=== PATIENT | female | born 1955 | race Caucasian/White ===

== ENCOUNTER → 2017-10-03 07:56 | Outpatient (CLI) | payer OTHER, SELFPAY ==
--- NOTE | 2017-10-03 | DI.MG.S_ITS ---
BILATERAL DIGITAL SCREENING MAMMOGRAM 3D/2D WITH CAD: 10/03/2017 CLINICAL: Routine screening. Comparison is made to exams dated: 10/03/2016 mammogram - [facility] and 08/16/2014 mammogram - [facility]. The tissue of both breasts is heterogeneously dense. This may lower the sensitivity of mammography. Current study was also evaluated with a Computer Aided Detection (CAD) system. No significant masses, calcifications, or other findings are seen in either breast. There has been no significant interval change. IMPRESSION: NEGATIVE There is no mammographic evidence of malignancy. A 1 year screening mammogram is recommended. This exam was interpreted at Station ID: [id number]. NOTE: For mammograms, a report in lay terms will be sent to the patient. Approximately 15% of breast malignancies will not be visualized mammographically. In the management of a palpable breast mass, a negative mammogram must not discourage biopsy of a clinically suspicious lesion. Electronically Signed By: Amador cabrera/erin:10/05/2017 11:28:55 letter sent: Normal Exam ACR BI-RADS Category 1: Negative 3341F
== END ==
PROVIDERS: Family Provider Family Medicine; PCP Family Medicine; Visit Provider Family Medicine
DX: Z12.31 Encounter for screening mammogram for malignant neoplasm of breast (principal)
CPT/HCPCS: 77063; 77067

== ENCOUNTER → 2018-05-26 15:52 | Outpatient (CLI) | payer OTHER, SELFPAY ==
--- NOTE | 2018-05-26 15:54 | DI.RAD.S_ITS ---
PROCEDURE: XR LUMBAR SPINE 2-3V INDICATIONS: R hip px TECHNIQUE: 3 views of the lumbar spine were acquired. COMPARISON: None. FINDINGS: Bones: 5 [id number] vertebrae are present. There is severe levoscoliosis. No vertebral body compression fractures. No suspicious bony lesions. There is degenerative disc disease, moderate at T12-L1, L1-L2, and mild at other levels. There is severe facet arthropathy at L3 at L4, L5 and L5 and L5-S1. Soft tissues: Overlying bowel gas pattern is normal. No suspicious soft tissue calcifications. IMPRESSION: 1. Severe levoscoliosis. 2. Degenerative disc and facet disease as described. Dictated by: Ricky Babin M.D. on 05/26/2018 at 17:28 Approved by: Ricky Babin M.D. on 05/26/2018 at 17:30
--- NOTE | 2018-05-26 15:54 | DI.RAD.S_ITS ---
PROCEDURE: XR HIP W PEL IF DONE RT 2V INDICATIONS: R hip px TECHNIQUE: AP pelvis with lateral view(s) of the right hip(s). COMPARISON: None. FINDINGS: Bones: No fractures or dislocations. Pelvic ring appears intact. No suspicious bony lesions. There is a right hip arthroplasty. The prosthetic femoral head appears seated superiorly and laterally subluxed. There is degenerative disease in the lower lumbar spine. A large left lateral osteophyte is noted. Soft tissues: The visualized bowel gas pattern is normal. No suspicious soft tissue calcifications. IMPRESSION: Right hip arthroplasty. The prosthetic femoral head appears malaligned suspicious for hip dislocation. Dictated by: Rikcy Babin M.D. on 05/26/2018 at 17:40 Approved by: Ricky Babin M.D. on 05/26/2018 at 17:43
== END ==
PROVIDERS: PCP Family Medicine; Visit Provider Family Medicine
DX: M25.551 Pain in right hip (principal); M41.86 Other forms of scoliosis, lumbar region; M51.36 Other intervertebral disc degeneration, lumbar region; Z96.641 Presence of right artificial hip joint
CPT/HCPCS: 72100; 73502

== ENCOUNTER → 2018-10-05 10:35 | Outpatient (CLI) | payer OTHER, SELFPAY ==
--- NOTE | 2018-10-05 | DI.MG.S_ITS ---
BILATERAL DIGITAL SCREENING MAMMOGRAM 3D/2D WITH CAD: 10/05/2018 CLINICAL: Routine screening. Comparison is made to exams dated: 10/03/2017 mammogram, 10/03/2016 mammogram - [facility], and 08/16/2014 mammogram - [facility]. The tissue of both breasts is heterogeneously dense. This may lower the sensitivity of mammography. Current study was also evaluated with a Computer Aided Detection (CAD) system. There is 0.7 cm oval equal density asymmetry in the right breast anterior depth inferior region seen on the mediolateral oblique view only. This is more prominent and increased in size. No other significant masses, calcifications, or other findings are seen in either breast. IMPRESSION: INCOMPLETE: NEEDS ADDITIONAL IMAGING EVALUATION The 0.7 cm oval equal density asymmetry in the right breast is indeterminate. Additional views with possible ultrasound are recommended. This exam was interpreted at Station ID: [id number]. NOTE: For mammograms, a report in lay terms will be sent to the patient. Approximately 15% of breast malignancies will not be visualized mammographically. In the management of a palpable breast mass, a negative mammogram must not discourage biopsy of a clinically suspicious lesion. Electronically Signed By: Cheo Jo M.D. aty/:10/05/2018 12:03:46 letter sent: Additional Imaging Needed ACR BI-RADS Category 0: Incomplete 3340F
== END ==
PROVIDERS: PCP Family Medicine; Visit Provider Family Medicine
DX: Z12.31 Encounter for screening mammogram for malignant neoplasm of breast (principal)
CPT/HCPCS: 77063; 77067

== ENCOUNTER → 2018-10-25 08:58 | Outpatient (CLI) | payer OTHER, SELFPAY ==
--- NOTE | 2018-10-25 09:00 | DI.US.S_ITS ---
LIMITED ULTRASOUND OF RIGHT BREAST: 10/25/2018 CLINICAL: Patient returns today to evaluate a density in the right breast. Comparison is made to exams dated: 10/25/2018 mammogram, 10/05/2018 mammogram, 10/03/2017 mammogram, 10/03/2016 mammogram - [facility], and 08/16/2014 mammogram - [facility]. Color flow and real-time ultrasound of the right breast 5-7 o'clock region were performed on the areas of interest. There is a benign 0.5 cm x 0.4 cm x 0.6 cm oval cyst in the right breast at 6 o'clock anterior depth. This oval cyst is anechoic with a well-defined boundary and posterior acoustic shadowing. This correlates with mammography findings. Color flow imaging demonstrates that there is no vascularity present. IMPRESSION: BENIGN There is no sonographic evidence of malignancy. The 0.5 cm x 0.4 cm x 0.6 cm oval cyst in the right breast is consistent with a simple cyst and is benign. A 1 year screening mammogram is recommended. This exam was interpreted at Station ID: [id number]. Electronically Signed By: Amador cabrera/erin:10/25/2018 11:07:19 letter sent: Normal Exam Ultrasound BI-RADS: 2 Benign
--- NOTE | 2018-10-25 09:00 | DI.MG.S_ITS ---
UNILATERAL RIGHT DIGITAL DIAGNOSTIC MAMMOGRAM 3D/2D WITH ADDITIONAL VIEWS: 10/25/2018 CLINICAL: Additional evaluation requested from prior study. Comparison is made to exams dated: 10/05/2018 mammogram, 10/03/2017 mammogram, and 10/03/2016 mammogram - [facility]. The tissue of right breast is heterogeneously dense. This may lower the sensitivity of mammography. There is 0.7 cm oval equal density asymmetry in the right breast anterior depth inferior region seen on the mediolateral oblique view only. This is seen in additional views. This is less prominent. No other significant masses or calcifications are seen in the breast. IMPRESSION: INCOMPLETE: NEEDS ADDITIONAL IMAGING EVALUATION The 0.7 cm oval equal density asymmetry in the right breast is indeterminate. An ultrasound is recommended which is scheduled to immediately follow this examination. This exam was interpreted at Station ID: [id number]. NOTE: For mammograms, a report in lay terms will be sent to the patient. Approximately 15% of breast malignancies will not be visualized mammographically. In the management of a palpable breast mass, a negative mammogram must not discourage biopsy of a clinically suspicious lesion. Electronically Signed By: Cheo Jo M.D. aty/:10/25/2018 11:00:46 ACR BI-RADS Category 0: Incomplete 3340F
== END ==
PROVIDERS: PCP Family Medicine; Visit Provider Family Medicine
DX: R92.8 Other abnormal and inconclusive findings on diagnostic imaging of breast (principal); N60.01 Solitary cyst of right breast
CPT/HCPCS: 76642; 77065; G0279

== ENCOUNTER → 2019-10-31 08:37 | Outpatient (CLI) | payer OTHER, SELFPAY ==
--- NOTE | 2019-10-31 | DI.MG.S_ITS ---
BILATERAL DIGITAL SCREENING MAMMOGRAM 3D/2D WITH CAD: 10/31/2019 CLINICAL: Routine screening. Comparison is made to exams dated: 10/05/2018 mammogram, 10/03/2017 mammogram, and 10/03/2016 mammogram - [facility]. The tissue of both breasts is heterogeneously dense. This may lower the sensitivity of mammography. Current study was also evaluated with a Computer Aided Detection (CAD) system. No significant masses, calcifications, or other findings are seen in either breast. There has been no significant interval change. IMPRESSION: NEGATIVE There is no mammographic evidence of malignancy. A 1 year screening mammogram is recommended. This exam was interpreted at Station ID: [id number]. NOTE: For mammograms, a report in lay terms will be sent to the patient. Approximately 15% of breast malignancies will not be visualized mammographically. In the management of a palpable breast mass, a negative mammogram must not discourage biopsy of a clinically suspicious lesion. Electronically Signed By: Cheo gonzalez/erin:10/31/2019 09:11:27 letter sent: Normal Exam ACR BI-RADS Category 1: Negative 3341F
== END ==
PROVIDERS: PCP Student in an Organized Health Care Education/Training Program; Referring Provider Student in an Organized Health Care Education/Training Program; Visit Provider Student in an Organized Health Care Education/Training Program
DX: Z12.31 Encounter for screening mammogram for malignant neoplasm of breast (principal)
CPT/HCPCS: 77063; 77067

== ENCOUNTER → 2020-12-14 10:08 | Outpatient (CLI) | payer OTHER, SELFPAY ==
--- NOTE | 2020-12-14 | DI.MG.S_ITS ---
BILATERAL DIGITAL SCREENING MAMMOGRAM 3D/2D WITH CAD: 12/14/2020 CLINICAL: Routine screening. Comparison is made to exams dated: 10/31/2019 mammogram, 10/05/2018 mammogram, 10/03/2017 mammogram, 10/03/2016 mammogram - [facility], and 08/16/2014 mammogram - [facility]. The tissue of both breasts is heterogeneously dense. This may lower the sensitivity of mammography. Current study was also evaluated with a Computer Aided Detection (CAD) system. No significant masses, calcifications, or other findings are seen in either breast. There has been no significant interval change. IMPRESSION: NEGATIVE There is no mammographic evidence of malignancy. A 1 year screening mammogram is recommended. This exam was interpreted at Station ID: [id number]. NOTE: For mammograms, a report in lay terms will be sent to the patient. Approximately 15% of breast malignancies will not be visualized mammographically. In the management of a palpable breast mass, a negative mammogram must not discourage biopsy of a clinically suspicious lesion. Electronically Signed By: Jules ellis/erin:12/14/2020 15:09:15 letter sent: Normal Exam ACR BI-RADS Category 1: Negative 3341F
== END ==
PROVIDERS: PCP Student in an Organized Health Care Education/Training Program; Referring Provider Student in an Organized Health Care Education/Training Program; Visit Provider Student in an Organized Health Care Education/Training Program
DX: Z12.31 Encounter for screening mammogram for malignant neoplasm of breast (principal)
CPT/HCPCS: 77063; 77067

== ENCOUNTER → 2021-12-11 12:00 | Outpatient (CLI) | payer OTHER, SELFPAY ==
[2021-12-12 10:35] LABS: Fecal Immunochemical Test Negative (Negative)
== END ==
PROVIDERS: PCP Nurse Practitioner; Referring Provider Nurse Practitioner; Visit Provider Nurse Practitioner
DX: Z12.11 Encounter for screening for malignant neoplasm of colon (principal)
CPT/HCPCS: 82274

== ENCOUNTER → 2021-12-17 07:47 | Outpatient (CLI) | payer OTHER, SELFPAY ==
--- NOTE | 2021-12-17 07:49 | DI.MG.S_ITS ---
BILATERAL DIGITAL SCREENING MAMMOGRAM 3D/2D WITH CAD: 12/17/2021 CLINICAL: Routine screening. Family history of breast cancer. Comparison is made to exams dated: 12/14/2020 mammogram, 10/31/2019 mammogram, 10/05/2018 mammogram, and 10/03/2017 mammogram - [facility]. The tissue of both breasts is heterogeneously dense. This may lower the sensitivity of mammography. Current study was also evaluated with a Computer Aided Detection (CAD) system. No significant masses, calcifications, or other findings are seen in either breast. There has been no significant interval change. IMPRESSION: NEGATIVE There is no mammographic evidence of malignancy. A 1 year screening mammogram is recommended. Based on the Tyrer Cuzick model (a risk assessment model) the patient's lifetime risk is 6.4% and her 10 year risk is 3.4%. According to the ACR, ACS, and NCCN guidelines, an annual breast MRI exam along with mammogram is recommended if the patient's lifetime risk is 20% or greater. This exam was interpreted at Station ID: [id number]. NOTE: For mammograms, a report in lay terms will be sent to the patient. Approximately 15% of breast malignancies will not be visualized mammographically. In the management of a palpable breast mass, a negative mammogram must not discourage biopsy of a clinically suspicious lesion. Electronically Signed By: Jules ellis/erin:12/17/2021 10:01:07 letter sent: Normal Exam ACR BI-RADS Category 1: Negative 3341F
== END ==
PROVIDERS: PCP Nurse Practitioner; Referring Provider Nurse Practitioner; Visit Provider Nurse Practitioner
DX: Z12.31 Encounter for screening mammogram for malignant neoplasm of breast (principal); Z80.3 Family history of malignant neoplasm of breast
CPT/HCPCS: 77063; 77067

== ENCOUNTER → 2021-12-30 08:16 | Outpatient (CLI) | payer OTHER, SELFPAY ==
[2021-12-30 09:17] LABS: Cholesterol 190 mg/dL (140-199); HDL Cholesterol 69 mg/dL (40-60); LDL Cholesterol Calculated 108 mg/dL (<100); Triglycerides 65 mg/dL (35-150)
== END ==
PROVIDERS: PCP Nurse Practitioner; Referring Provider Nurse Practitioner; Visit Provider Nurse Practitioner
DX: M85.80 Other specified disorders of bone density and structure, unspecified site (principal); F41.9 Anxiety disorder, unspecified; Z13.1 Encounter for screening for diabetes mellitus; Z13.6 Encounter for screening for cardiovascular disorders
CPT/HCPCS: 36415; 80061

== ENCOUNTER → 2022-01-22 09:51 | Outpatient (CLI) | payer OTHER, SELFPAY | PROVIDERS: PCP Nurse Practitioner; Referring Provider Nurse Practitioner; Visit Provider Nurse Practitioner | DX: M81.0 Age-related osteoporosis without current pathological fracture (principal); M85.89 Other specified disorders of bone density and structure, multiple sites | CPT/HCPCS: 77080 ==

== ENCOUNTER → 2022-03-31 09:47 | Outpatient (CLI) | payer OTHER, SELFPAY | PROVIDERS: PCP Nurse Practitioner; Referring Provider Podiatrist; Visit Provider Podiatrist | DX: Z01.818 Encounter for other preprocedural examination (principal) | CPT/HCPCS: 93005 ==

== ENCOUNTER → 2022-04-23 11:58 | Outpatient (CLI) | payer OTHER, SELFPAY ==
[2022-04-23 12:56] LABS: COVID19 -Nasal RAPID Negative (Negative)
== END ==
PROVIDERS: PCP Nurse Practitioner; Referring Provider Podiatrist; Visit Provider Podiatrist
DX: Z20.822 Contact with and (suspected) exposure to COVID-19 (principal)
CPT/HCPCS: 87635; C9803

== ENCOUNTER 2022-04-25 08:01 | Day surgery (SDC) | payer OTHER, SELFPAY ==
[2022-04-24 09:48] VITALS: BMI 22.1
[2022-04-25] VITALS (11 sets, daily range): BP systolic 118–139; BP diastolic 72–83; PULSE 73–84; RESP 11–24; TEMP 36–36.4; O2SAT 96–100; BMI 21.2
[2022-04-25] MEDS: LACTATED RINGERS 1,000 ML 42 ML IV ×2 (08:35→11:42)
--- NOTE | 2022-04-25 08:55 | P.OP_ITS ---
Operative Date/Time/Diagnoses Date of procedure: 04/25/22 Time of procedure: 08:55 Pre-op diagnosis: Left first metatarsophalangeal arthrodesis, hammertoes two and four, with pain. Post-op diagnosis: same Procedure & Clinicians Procedure: 1. Left first metatarsophalangeal joint arthrodesis 2. Left second metatarsal osteotomy with proximal interphalangeal joint arthrodesis 3. Left fourth proximal interphalangeal toe joint arthrodesis with metatarsophalangeal capsulotomy. Same procedure as scheduled: Yes Indications: 66-year-old female with concern of painful arthritic great toe as well as painful hammertoes to the 2nd and 4th on the left foot. Conservative measures have failed to alleviate her pain and she wished to have surgical intervention at this time. We spoke with the risks, potential complications, alternatives, and expected outcomes of the procedures. Consent was signed, there were no contraindications to the procedures at this time. Surgeon: Jeanne Nixon Click Yes if Unassisted: Yes Anesthesia Type: General Operative Notes Closure Type: primary Specimen(s): none sent Prosthetic devices, grafts, tissues, transplants, or devices: Baldwin great toe fusion plate, 4.0 cannulated screw, 2.7 x4 screws, 2.0 cannulated screw. 0.054 and 0.045 k-wires. Estimated Blood Loss (mL): 30 Blood products transfused: none Tourniquet time (min): 120 Procedure in detail: The patient was brought to the operating room and placed on the operating table in the supine position. A tourniquet was placed about the patient's left thigh. After induction of general anesthesia the foot was prepped and local anesthesia using the recorded injectables was obtained to the first, second, and fourth rays. The foot and ankle were prepped and draped in the usual aseptic manner. The tourniquet was inflated. Incision was made over the dorsal aspect of the left 1st metatarsophalangeal joint. The incision was deepened through subcutaneous tissues being careful to identify and retract all vital neurovascular structures. All bleeders were cauterized and ligated necessary. A significant amount of degenerative exostoses were noted to the dorsal medial, central, and lateral 1st metatarsophalangeal joint. A saw was used to resect the enlargements and spurring as well as ronguer used to reduce these enlargements and spurring at the metatarsal head as well as base of proximal phalanx. The joint showed about significant remodeling and flattening of the first metatarsal head and more conical shape with remodeling of the phalangeal base. The saw was used to make angular cuts to either side of the joint to place the joint in better alignment, however the interphalangeal joint was fairly tight and I was limited in how much I could gain in sagittal plane with the tightness and angle of the interphalangeal joint. The saw was used to resect the cartilage from the 1st metatarsal head and the same procedure was performed to the proximal phalanx base. Subchondral drilling was performed to either side with a small drill and round seble. The area was irrigated with copious amount of normal sterile saline. Temporary fixation across the joint was placed with a guidewire and this was checked under C-arm to be in appropriate alignment. A plate was chosen and any further reduction of prominences dorsally was performed with a rongeur. One edge of it was slightly bent to allow for better contour. Using the aid of fl uoroscopy, the guide wire was used as cannulation for the drill for a lag screw from the distal medial to proximal lateral 1st metatarsal phalangeal joint. Confirmed appropriate in all 3 planes, a partially threaded screw was placed and the guidewire removed. Good strength and reduction of the former joint. Plate was placed and with the aid of fluoroscopy a series of locking screws and a nonlocking screw were placed across the plate and steadied the joint well. I was not able to use one of the holes in the plate due to presence of underlying lag screw, but good support and compression was noted on exam and under fluoroscopy. This was checked on C-arm. The area is irrigated with copious amounts normal sterile saline. Next, incision is made over the 2nd metatarsophalangeal joint extending to the distal interphalangeal joint. The incision was deepened through subcutaneous tissues being careful to identify and retract all vital neural and vascular structures. All bleeders were cauterized and ligated as necessary. The extensor was transected over the proximal and distal interphalangeal joints and reflected distally and proximally showing the underlying contracture of the cor responding joints. A saw was used to resect the head and the base of the proximal interphalangeal joint. This was attempted at the distal interphalangeal joint however this was just too close to the nail and the joint was linear as well as fairly immobile so the decision was made not to perform the resection here. Dissection was carried down to the 2nd metatarsophalangeal joint where a capsulotomy was performed. Once the contracture was a little further reduced with the soft tissue a saw was used to create an osteotomy on the dorsal lip of the 2nd metatarsal head going proximally. The head of the 2nd metatarsal is moved slightly proximally and stabilized with a guidewire dorsal to plantar. This was verified under C-arm to be in appropriate alignment. The tourniquet was deflated and prompt hyperemic response was seen to the foot. Following standard technique, a 2.0 cannulated screw was placed across this osteotomy and showed to be in stable condition. Remaining overlying lip of bone from the metatarsal head/shaft was resected gently using a rongeur and smoothed. The guidewire was removed. Upon loading the foot, it appeared that the extensor was still going to be a little bit tight so a Z-type lengthening was performed to the 2nd extensor tendon at the level of the proximal phalanx. The area was irrigated with copious amounts of normal sterile saline. A 0.054 K- wire was placed in the base of the proximal phalanx and driven out toward the tip of the 2nd toe. This was then retrograded into the proximal phalanx and under C-arm verified to be in good alignment. The proximal interphalangeal arthrodesis had closed down. Excess K-wire was removed and it was carefully bent and capped. The extensor tendon was repaired using 4-0 Vicryl. Next an incision was made over the 4th metatarsal phalangeal joint extending to the distal interphalangeal joint. The incision was deepened through subcutaneous tissues being careful to identify and retract all vital neural and vascular structures. All bleeders were cauterized and ligated as necessary. The extensor was transected over the proximal and distal interphalangeal joints and reflected distally and proximally showing the underlying contracture of the corresponding joints. A saw was used to resect the head and the base of the proximal interphalangeal joint. This was attempted at the distal interphalangeal joint however this was also too close to the nail and the joint was linear as well as fairly immobile so the decision was made not to perform the resection here. Dissection was carried down to the fourth metatarsophalangeal joint where a capsulotomy was performed. A 0.054 K-wire was placed in the base of the proximal phalanx and driven out toward the tip of the fourth toe. This was then retrograded into the proximal phalanx and under C-arm verified to be in good alignment. The proximal interphalangeal arthrodesis had closed down. Excess K-wire was removed and it was carefully bent and capped. Final irrigation of the areas was performed. Subcutaneous closure was performed using Vicryl and nylon was used to close the skin. A sterile lightly compressive dressing was placed on the foot and she was placed in her postoperative boot. She was transferred to the PACU with vital signs stable and vascular status intact. Post-operative Condition: stable Disposition: PACU Plan for aftercare: Following a period of postoperative monitoring, the patient will be discharged t o home on written and oral postoperative instructions including keeping the dressing dry and intact, no weight or ambulation on the surgical foot, icing and elevating the foot when seated home. DVT prevention techniques have been reviewed. For the 1st postoperative visit the dressing will be changed and close to the 4th postoperative week we will likely perform first set of x-rays.
--- NOTE | 2022-04-25 08:55 | PM.PREOP ---
Pre-operative Note COVID-19 COVID-19 status: Negative Result date/Date tested (Pos, Neg/Pending): 04/23/22 Interval Note History & Physical reviewed/Exam performed by Physician: Yes Changes to H&P: No
[2022-04-25] MEDS: CEFAZOLIN 2 GM/100 ML PREMIX 100 ML IV ×2 (09:04→12:44)
[2022-04-25] MEDS: BUPIVACAINE 0.5% (PF) VIAL 30 ML INJ (09:41)
--- NOTE | 2022-04-25 09:47 | SUR.OPER ---
Supine on padded OR bed, head on pillow, arms secured on padded arm boards at <90 degrees abduction, legs uncrossed, safety belt at waist , tape over blanket over lower right leg, left leg draped free with gel bump under left thigh.
[2022-04-25] MEDS: BACITRACIN OINT 0.9 GM PCKT 1 APPLIC TOP (13:17)
== END 2022-04-25 14:42 | disposition home or self-care (01) ==
PROVIDERS: PCP Nurse Practitioner; Referring Provider Podiatrist; Visit Provider Podiatrist
PROC: (CPT 28750; principal; 2022-04-25 09:15)
DX: M19.072 Primary osteoarthritis, left ankle and foot (principal); M20.42 Other hammer toe(s) (acquired), left foot; M20.12 Hallux valgus (acquired), left foot
CPT/HCPCS: 28750; 28285 ×2; 28308; C1713; J0690; J1100; J2405; J2704; J3010

== ENCOUNTER → 2022-06-25 08:28 | Outpatient (CLI) | payer OTHER, SELFPAY ==
[2022-06-25 09:47] LABS: Alanine Aminotransferase 20 IU/L (<35); Albumin 4.2 g/dL (3.5-5.0); Albumin Globulin Ratio 1.5 (1.0-2.8); Alkaline Phosphatase 111 U/L (38-126); Aspartate Aminotransferase 24 IU/L (14-36); BUN Creatinine Ratio 17.9 (6-22); Bilirubin Total 0.4 mg/dL (0.2-1.3); Blood Urea Nitrogen 12 mg/dL (7-17); Calcium 9.2 mg/dL (8.4-10.2); Carbon Dioxide 29 mmol/L (22-32); Chloride 103 mmol/L (98-107); Estimated Glomerular Filt Rate > 60 mL/min (>60); Globulin 2.8 g/dL (1.7-4.1); Glucose 95 mg/dL (80-110); HEMOLYSIS < 15 (0-50); Potassium 4.2 mmol/L (3.4-5.1); Sodium 138 mmol/L (137-145)
[2022-06-25 10:12] LABS: Free T3, Triiodothyronine Free 3.51 pg/mL (2.77-5.27); Free T4, Direct Thyroxine 1.09 ng/dL (0.78-2.19)
[2022-06-25 10:25] LABS: Thyroid Stimulating Hormone 1.63 uIU/mL (0.47-4.68)
[2022-06-26 16:29] LABS: Hep C Virus Ab w/Reflex Quant NEGATIVE s/c (NEGATIVE)
== END ==
PROVIDERS: PCP Nurse Practitioner; Referring Provider Nurse Practitioner; Visit Provider Nurse Practitioner
DX: F41.9 Anxiety disorder, unspecified (principal); Z11.59 Encounter for screening for other viral diseases; M85.80 Other specified disorders of bone density and structure, unspecified site; Z13.1 Encounter for screening for diabetes mellitus; Z13.6 Encounter for screening for cardiovascular disorders
CPT/HCPCS: 36415; 80053; 84439; 84443; 84481; 86803

== ENCOUNTER → 2022-12-19 08:43 | Outpatient (CLI) | payer OTHER, SELFPAY ==
--- NOTE | 2022-12-19 | DI.MG.S_ITS ---
BILATERAL DIGITAL SCREENING MAMMOGRAM 3D/2D WITH CAD: 12/19/2022 CLINICAL: Routine screening. Family history of breast cancer. Comparison is made to exams dated: 12/17/2021 mammogram, 12/14/2020 mammogram, and 10/31/2019 mammogram - [facility]. Both breasts are heterogeneously dense, which may obscure small masses (category c / 51-75% glandular tissue). Current study was also evaluated with a Computer Aided Detection (CAD) system. No significant masses, calcifications, or other findings are seen in either breast. There has been no significant interval change. IMPRESSION: NEGATIVE There is no mammographic evidence of malignancy. A 1 year screening mammogram is recommended. Based on the Tyrer Cuzick model (a risk assessment model) the patient's lifetime risk is 6.1% and her 10 year risk is 3.4%. According to the ACR, ACS, and NCCN guidelines, an annual breast MRI exam along with mammogram is recommended if the patient's lifetime risk is 20% or greater. This exam was interpreted at Station ID: [id number]. NOTE: For mammograms, a report in lay terms will be sent to the patient. Approximately 15% of breast malignancies will not be visualized mammographically. In the management of a palpable breast mass, a negative mammogram must not discourage biopsy of a clinically suspicious lesion. Electronically Signed By: Azra wilhelm/erin:12/19/2022 17:37:27 letter sent: Normal Exam ACR BI-RADS Category 1: Negative 3341F
== END ==
PROVIDERS: PCP Nurse Practitioner; Referring Provider Nurse Practitioner; Visit Provider Nurse Practitioner
DX: Z12.31 Encounter for screening mammogram for malignant neoplasm of breast (principal); Z80.3 Family history of malignant neoplasm of breast
CPT/HCPCS: 77063; 77067

== ENCOUNTER → 2023-01-14 10:14 | Outpatient (CLI) | payer OTHER, SELFPAY ==
--- NOTE | 2023-01-14 10:15 | DI.RAD.S_ITS ---
Bone Density Report Name: SAUNDRA HER Age: 67 Sex: Female Ethnicity: White Date of : 1955 Indication: postmenopausal osteoporosis; monitoring treatment; Referring Provider: MARIA ELENA BRADEN Study: Bone densitometry was performed. Exam Date: January 14, 2023 Accession number: [id number] Bone Density: Region BMD T-score Z-score Classification AP Spine(L1-L4) 0.857 -1.7 0.3 Osteopenia Femoral Neck (Left) 0.618 -2.1 -0.4 Osteopenia Total Hip (Left) 0.726 -1.8 -0.4 Osteopenia Total Forearm (Left) 0.431 -2.7 -0.9 Osteoporosis 1/3 Forearm (Left) 0.505 -3.2 -1.2 Osteoporosis UD Forearm (Left) 0.314 -2.2 -0.8 Osteopenia World Health Organization criteria for BMD impression classify patients as: Normal (T-score at or above -1.0), Osteopenia (T-score between -1.0 and -2.5), or Osteoporosis (T-score at or below -2.5). 10-year Fracture Risk: FRAX not reported because: Treated for osteoporosis Previous Exams: -- Region Exam Age BMD T-score BMD Change BMD Change Date g/cm2 vs Baseline vs Previous -- AP Spine (L1-L4) 01/14/2023 67 0.857 -1.7 -0.074 (-7.9%)# -0.074 (-7.9%)# 01/22/2022 66 0.930 -1.1 Total Hip(Left) 01/14/2023 67 0.726 -1.8 -0.003 (-0.4%)# -0.003 (-0.4%)# 01/22/2022 66 0.728 -1.8 1/3 Forearm(Left) 01/14/2023 67 0.505 -3.2 -0.002 (-0.4%) -0.002 (-0.4%) 01/22/2022 66 0.507 -3.1 -- *Denotes significance at 95% confidence level, LSC for AP Spine = 0.022 g/cm2, LSC for Total Hip = 0.027 g/cm2, LSC for 1/3 Forearm = 0.023 g/cm2 # Denotes dissimilar scan types or analysis methods Impression: The patient has low bone mass, based on the Left Femoral Neck T-score. No significant bone loss was observed. Discussion: PATIENT UNDER TREATMENT WITH NO SIGNIFICANT BMD LOSS SINCE LAST EXAM. In an untreated patient, BMD typically declines with age. A lack of decline or gain is usually a sign that treatment is efficacious and fracture risk is reduced. It is important to ask patients whether they are taking their medications and to encourage continued and appropriate compliance with their osteoporosis therapies to reduce fracture risk. It is also important to review their risk factors and encourage appropriate calcium and vitamin D intakes, exercise, fall prevention and other lifestyle measures. Follow-Up: Consider a repeat BMD and Vertebral Fracture Assessment (VFA) exam in 2 years or sooner if medically necessary, to reassess this patient's status. Reported by: CORTEZ ELLISON M.D. on 01/14/2023 10:43:00 AM.
== END ==
PROVIDERS: PCP Nurse Practitioner; Referring Provider Nurse Practitioner; Visit Provider Nurse Practitioner
DX: M81.0 Age-related osteoporosis without current pathological fracture (principal)
CPT/HCPCS: 77080; 77081

== ENCOUNTER → 2023-03-26 08:19 | Outpatient (CLI) | payer OTHER, SELFPAY ==
[2023-03-26 09:04] LABS: Add Manual Diff / Slide Review NO; Basophils Absolute Auto 100 /uL (0-100); Basophils Percent Auto 2.6 % (0-2); Eosinophils Absolute Auto 200 /uL (0-450); Hematocrit 40.2 % (36-46); Hemoglobin 13.8 g/dL (12.0-16.0); Lymphocytes Absolute Auto 1700 /uL (1100-4500); Lymphocytes Percent Auto 30.4 % (25-40); Mean Corpuscular HGB Conc 34.3 % (30-36); Mean Corpuscular Hemoglobin 32.8 PG (26-34); Mean Corpuscular Volume 95.7 fL (80-100); Monocytes Absolute Auto 500 /uL (0-900); Monocytes Percent Auto 9.5 % (3-14); Neutrophils Absolute Auto 2900 /uL (1500-7000); Neutrophils Percent Auto 53.5 % (50-75); Platelet Count 258 X10^3/uL (150-400); Red Cell Distribution Width 13.1 % (11.6-14.8); White Blood Cell Count 5.5 X10^3/uL (4.5-11.0)
[2023-03-26 09:51] LABS: Alanine Aminotransferase 21 IU/L (<35); Albumin 4.4 g/dL (3.5-5.0); Albumin Globulin Ratio 1.3 (1.0-2.8); Alkaline Phosphatase 77 U/L (38-126); Aspartate Aminotransferase 30 IU/L (14-36); BUN Creatinine Ratio 17.6 (6-22); Bilirubin Total 0.6 mg/dL (0.2-1.3); Blood Urea Nitrogen 12 mg/dL (7-17); Calcium 9.9 mg/dL (8.4-10.2); Carbon Dioxide 27 mmol/L (22-32); Chloride 101 mmol/L (98-107); Cholesterol 224 mg/dL (140-199); Estimated Glomerular Filt Rate > 60 mL/min (>60); Globulin 3.5 g/dL (1.7-4.1); Glucose 96 mg/dL (80-110); HDL Cholesterol 87 mg/dL (40-60); HEMOLYSIS < 15 (0-50); LDL Cholesterol Calculated 124 mg/dL (<100); Potassium 4.2 mmol/L (3.4-5.1); Sodium 137 mmol/L (137-145); Total Protein 7.9 g/dL (6.3-8.2); Triglycerides 65 mg/dL (35-150)
[2023-03-26 10:08] LABS: Free T3, Triiodothyronine Free 3.37 pg/mL (2.77-5.27); Free T4, Direct Thyroxine 1.15 ng/dL (0.78-2.19)
[2023-03-26 10:22] LABS: Thyroid Stimulating Hormone 1.76 uIU/mL (0.47-4.68)
[2023-03-30 12:08] LABS: Fecal Immunochemical Test Negative (Negative)
== END ==
PROVIDERS: PCP Nurse Practitioner; Referring Provider Nurse Practitioner; Visit Provider Nurse Practitioner
DX: Z86.2 Personal history of diseases of the blood and blood-forming organs and certain disorders involving the immune mechanism (principal); E78.5 Hyperlipidemia, unspecified; F41.9 Anxiety disorder, unspecified; M81.0 Age-related osteoporosis without current pathological fracture; Z79.899 Other long term (current) drug therapy; Z12.11 Encounter for screening for malignant neoplasm of colon
CPT/HCPCS: 36415; 80053; 80061; 82274; 84439; 84443; 84481; 85025

== ENCOUNTER → 2023-07-07 09:11 | Outpatient (CLI) | payer OTHER, SELFPAY ==
[2023-07-07 10:35] LABS: Alanine Aminotransferase 26 IU/L (<35); Albumin Globulin Ratio 1.3 (1.0-2.8); Alkaline Phosphatase 103 U/L (38-126); Aspartate Aminotransferase 28 IU/L (14-36); BUN Creatinine Ratio 20.6 (6-22); Bilirubin Total 0.4 mg/dL (0.2-1.3); Blood Urea Nitrogen 13 mg/dL (7-17); Calcium 9.4 mg/dL (8.4-10.2); Carbon Dioxide 26 mmol/L (22-32); Chloride 104 mmol/L (98-107); Cholesterol 160 mg/dL (140-199); Estimated Glomerular Filt Rate > 60 mL/min (>60); Glucose 91 mg/dL (80-110); HDL Cholesterol 54 mg/dL (40-60); HEMOLYSIS < 15 (0-50); LDL Cholesterol Calculated 95 mg/dL (<100); Potassium 4.4 mmol/L (3.4-5.1); Sodium 138 mmol/L (137-145); Triglycerides 55 mg/dL (35-150)
== END ==
PROVIDERS: PCP Nurse Practitioner; Referring Provider Nurse Practitioner; Visit Provider Nurse Practitioner
DX: E78.5 Hyperlipidemia, unspecified (principal); M81.0 Age-related osteoporosis without current pathological fracture
CPT/HCPCS: 36415; 80053; 80061

== ENCOUNTER → 2023-12-21 07:42 | Outpatient (CLI) | payer OTHER, SELFPAY ==
--- NOTE | 2023-12-21 07:43 | DI.MG.S_ITS ---
BILATERAL DIGITAL SCREENING MAMMOGRAM 3D/2D WITH CAD: 12/21/2023 CLINICAL: Routine screening. Family history of breast cancer. Comparison is made to exams dated: 12/19/2022 mammogram, 12/17/2021 mammogram, 10/31/2019 mammogram, and 12/14/2020 mammogram - [facility]. Both breasts are heterogeneously dense, which may obscure small masses (category c / 51-75% glandular tissue). Current study was also evaluated with a Computer Aided Detection (CAD) system. No significant masses, calcifications, or other findings are seen in either breast. There has been no significant interval change. IMPRESSION: NEGATIVE There is no mammographic evidence of malignancy. A 1 year screening mammogram is recommended. Based on the Tyrer Cuzick model (a risk assessment model) the patient's lifetime risk is 7.3% and her 10 year risk is 4.3%. According to the ACR, ACS, and NCCN guidelines, an annual breast MRI exam along with mammogram is recommended if the patient's lifetime risk is 20% or greater. This exam was interpreted at Station ID: [id number]. NOTE: For mammograms, a report in lay terms will be sent to the patient. Approximately 15% of breast malignancies will not be visualized mammographically. In the management of a palpable breast mass, a negative mammogram must not discourage biopsy of a clinically suspicious lesion. Electronically Signed By: Addison garcia/erin:12/21/2023 13:33:19 letter sent: Normal Exam ACR BI-RADS Category 1: Negative 3341F
== END ==
LOC: MAMMO 07:43
PROVIDERS: PCP Nurse Practitioner; Referring Provider Nurse Practitioner; Visit Provider Nurse Practitioner
DX: Z12.31 Encounter for screening mammogram for malignant neoplasm of breast (principal); Z80.3 Family history of malignant neoplasm of breast; R92.333 Mammographic heterogeneous density, bilateral breasts
CPT/HCPCS: 77063; 77067

== ENCOUNTER → 2023-12-23 08:04 | Outpatient (CLI) | payer OTHER, SELFPAY ==
[2023-12-23 09:50] LABS: Alanine Aminotransferase 20 IU/L (<35); Albumin 4.2 g/dL (3.5-5.0); Albumin Globulin Ratio 1.6 (1.0-2.8); Alkaline Phosphatase 91 U/L (38-126); Aspartate Aminotransferase 29 IU/L (14-36); BUN Creatinine Ratio 14.1 (6-22); Bilirubin Total 0.6 mg/dL (0.2-1.3); Blood Urea Nitrogen 10 mg/dL (7-17); Calcium 9.7 mg/dL (8.4-10.2); Carbon Dioxide 28 mmol/L (22-32); Chloride 105 mmol/L (98-107); Cholesterol 193 mg/dL (140-199); Estimated Glomerular Filt Rate > 60 mL/min (>60); Globulin 2.6 g/dL (1.7-4.1); Glucose 86 mg/dL (80-110); HDL Cholesterol 77 mg/dL (40-60); HEMOLYSIS < 15 (0-50); LDL Cholesterol Calculated 98 mg/dL (<100); Potassium 4.2 mmol/L (3.4-5.1); Sodium 138 mmol/L (137-145); Total Protein 6.8 g/dL (6.3-8.2); Triglycerides 92 mg/dL (35-150)
== END ==
PROVIDERS: PCP Nurse Practitioner; Referring Provider Nurse Practitioner; Visit Provider Nurse Practitioner
DX: E78.5 Hyperlipidemia, unspecified (principal); Z79.899 Other long term (current) drug therapy
CPT/HCPCS: 36415; 80053; 80061

== ENCOUNTER → 2024-04-11 10:52 | Outpatient (CLI) | payer OTHER, SELFPAY ==
--- NOTE | 2024-04-11 10:54 | DI.RAD.S_ITS ---
PROCEDURE: XR DEXA AXIAL SKELETON INDICATIONS: bone density screening COMPARISON: [facility], MYRNA, XR DEXA AXIAL SKELETON, 01/14/2023, 10:29. FINDINGS: Lumbar Spine: Bone mineral density 0.878 g/cm2, T score -1.6. There is interval 2.7% decrease in total lumbar spine bone mineral density. Left Hip: Bone mineral density 0.733 g/cm2, T score -1.7. There is interval 1% increase in total left hip bone mineral density. Left Femoral Neck: Bone mineral density 0.596 g/cm2, T score -2.3. There is interval 3.6% decrease in left femoral neck bone mineral density. Left Forearm: Bone mineral density 0.514 g/cm2, T score -3.0. There is interval 1.7% increase in left forearm bone mineral density. Fracture Risk Calculation (when applicable): 10-year fracture risk of a major osteoporotic fracture 12 percent and of a hip fracture 4.2 percent. (T score greater or equal to -1.0 to: NORMAL) (T score from -1.1 to -2.4: OSTEOPENIA) (T score less than or equal to -2.5: OSTEOPOROSIS) IMPRESSION: Osteoporosis. Follow-up guidelines as follows: Osteoporosis: Consider a repeat DEXA and Vertebral Fracture Assessment (VFA) exam in 2 years or sooner if medically necessary, to reassess this patient's status. Osteopenia: Consider a repeat DEXA in 2-3 years to reassess this patient's status, or if there is a new clinical indication. Normal: Consider a repeat DEXA in 5 years or sooner, or if there is a new clinical indication. All treatment decisions require clinical judgment and consideration of individual patient factors, including patient preferences, comorbidities, previous drug use, risk factors not captured in the FRAX model (e.g., frailty, falls, vitamin D deficiency, increased bone turnover, interval significant decline in bone density ) and possible under- or over-estimation of fracture risk by FRAX. In addition, the NOF Guide recommends that FDA-approved medical therapies be considered in postmenopausal women and men age >= 50 years with a: * Hip or vertebral (clinical or morphometric) fracture * T-score of <=-2.5 at the spine or hip * Ten-year fracture probability by FRAX of >= 3% for hip fracture or >=20% for major osteoporotic fracture. People with diagnosed cases of osteoporosis or at high risk for fracture should have regular bone mineral density tests. For patients eligible for Medicare, routine testing is allowed once every 2 years. The testing frequency can be increased to one year for patients who have rapidly progressing disease, those who are receiving or discontinuing medical therapy to restore bone mass, or have additional risk factors. Dictated by: Dayron Campos M.D. on 04/11/2024 at 13:20 Approved by: Dayron Campos M.D. on 04/11/2024 at 13:21
== END ==
PROVIDERS: PCP Family Medicine; Referring Provider Family Medicine; Visit Provider Family Medicine
DX: M81.0 Age-related osteoporosis without current pathological fracture (principal)
CPT/HCPCS: 77080; 77081

== ENCOUNTER 2024-09-07 08:15 | Day surgery (SDC) | payer OTHER, SELFPAY ==
--- NOTE | 2024-09-07 | PATH_ITS ---
[facility] Accession Number: [id number] No. of containers..01 Tissue . 01 Material submitted: . body - POLYP 80 . 01 Diagnosis: COLON POLYP AT 80 CM: Colonic mucosa with no evidence of neoplasm, consistent with polypoid redundancy. Negative for dysplasia or malignancy. Additional step sections examined. MRV 09/13/2024 1259 Local . 01 Electronically signed: . Boris Hemphill MD, PhD, Pathologist NPI- [id number] . 01 Gross description: . POLYP 80: Received in formalin is 1 fragment(s) of narvaez, soft tissue measuring 1.0 x 0.3 x 0.2 cm submitted entirely in 1 cassette(s) /PRAFUL 09/09/2024 0041 Local . 01 Pathologist provided ICD-10: K63.5 . 01 CPT . 975492 Specimen Comment: A courtesy copy of this report has been sent to [phone] Performed at: [address] [facility] [address], [place], [place] [id number] MD Amador Vizcarra MD Phone: [phone]
[2024-09-07 08:53] VITALS: BP 136/78; PULSE 66; RESP 16; TEMP 36.2; O2SAT 100
--- NOTE | 2024-09-07 08:57 | PM.HP.IH.1 ---
History of Present Illness History of Present Illness Date Patient Seen: 09/07/24 Chief complaint: SDC Narrative: Follow-up screening colonoscopy [facility] Medical History (Updated 03/29/24 @ 15:55 by Shandra Sexton DO) History of intracranial hemorrhage (~2017) Hyperlipidemia Wears glasses Osteoarthritis (~2012) Substance abuse Scoliosis Mumps (~1963) Measles (~1962) Chicken pox (~1962) Post-menopausal osteoporosis Eczema Numbness of right foot Osteopenia (03/14/16) Surgical History (Updated 03/29/24 @ 15:55 by Shandra Sexton DO) History of right hip replacement (~2012) Anesthesia Family History Father Mental health problem Mother Cancer Sister Hx of blood clots History of knee replacement History of bunionectomy Social History household members: spouse alcohol intake: former Meds Home Medications and Allergies Home Medications Medication Instructions Recorded Confirmed Type latanoprost 0.005 % eye drops 1 drp OPHTH HS #2.5 mL 03/14/16 02/08/24 History ferrous sulfate 325 mg (65 mg 325 mg PO DAILY 07/01/18 03/29/24 History iron) tablet (FeroSul) magnesium 133 mg PO .QD 07/01/18 03/29/24 History ejtoyaophhxu-Co-hnep-minerals 27 1 tab PO .QD 07/01/18 03/29/24 History mg-0.4 mg tablet (One Daily Women's) vitamin B complex 1 cap PO DAILY 12/10/21 03/29/24 History calcium 600 mg PO BID 02/04/22 03/29/24 History cholecalciferol (vitamin D3) 50 2,000 unit PO BID 02/04/22 02/08/24 History mcg (2,000 unit) capsule olive leaf extract 250 mg capsule See Rx Instructions PO .COMPLEX 07/15/23 03/29/24 History red yeast rice 600 mg capsule 600 mg PO BID 07/15/23 03/29/24 History ketoconazole 2 % topical cream 1 applic topical 02/08/24 03/29/24 History timolol maleate 0.5 % eye drops drp EYE-BOTH 02/08/24 03/29/24 History estradiol 10 mcg vaginal tablet 10 mcg vaginal 3XW #36 tabs 12/02/24 Rx (Yuvafem) raloxifene 60 mg tablet 60 mg PO DAILY #90 tabs 08/08/24 Rx peg 3350-electrolytes 236 240 ml PO Q10M #4,000 mL 08/19/24 Rx gram-22.74 gram-6.74 gram-5.86 gram solution (Golytely) Allergies Allergy/AdvReac Type Severity Reaction Status Date / Time No Known Drug Allergies Allergy Verified 09/07/24 08:53 Exam Narrative Exam Narrative: Oropharynx free of lesions Chest clear to auscultation percussion Cardiac exam reveals no S3 or murmur Assessment & Plan Assessment & Plan narrative: Follow-up screening colonoscopy. Risks, benefits, alternatives have been explained. Time-Based Coding :: [TOTAL MINUTES] spent with patient and on the chart (including review of chart, obtaining history, exam, reviewing outside data, placing orders, documenting exam and treatment plan, and counseling patient) on [DATE]. [employer] Project Manager Document charge(s): No
--- NOTE | 2024-09-07 08:58 | PM.OP.COLON ---
Operative Date/Time/Diagnoses Date of procedure: 09/07/24 Pre-op diagnosis: See indication and findings Procedure & Clinicians Study performed: Colonoscopy Same procedure as scheduled: Yes Indications: Follow-up screening colonoscopy Surgeon: Grzegorz Hedrick Procedure Notes Procedure in detail: After informed consents consent was obtained the patient was placed in left lateral decubitus position. The video colonoscope was introduced the rectum slowly advanced cecum. Preparation was good. On slow withdrawal mucosa was carefully examined. The scope was removed. The patient tolerated procedure well. Blood loss none Complications none Sedation mac Findings 1. 3 mm sessile polyp at 80 cm. Jumbo biopsied and removed completely 2. Otherwise negative colonoscopy to cecum Patient should have follow-up colonoscopy in 5 years
[2024-09-07] MEDS: LACTATED RINGERS 1,000 ML 84 ML IV (09:01)
[2024-09-07 09:48] VITALS: BP 71/44; PULSE 64; RESP 16; TEMP 36.2; O2SAT 92
[2024-09-07 09:52] VITALS: BP 79/53; PULSE 79; RESP 17
[2024-09-07 09:57] VITALS: BP 86/48; PULSE 61; RESP 18; TEMP 36.2; O2SAT 94
[2024-09-07 10:02] VITALS: BP 90/50; PULSE 62; RESP 14; O2SAT 95
[2024-09-07 10:26] VITALS: BP 117/69; PULSE 61; TEMP 36.3; O2SAT 100
== END 2024-09-07 10:25 | disposition home or self-care (01) ==
PROVIDERS: PCP Family Medicine; Referring Provider Internal Medicine Gastroenterology; Visit Provider Internal Medicine Gastroenterology
PROC: 0DJD8ZZ Inspection of Lower Intestinal Tract, Via Natural or Artificial Opening Endoscopic (ICD-10-PCS; CPT 45378; principal; 2024-09-07 09:30)
DX: Z12.11 Encounter for screening for malignant neoplasm of colon (principal); K63.5 Polyp of colon
CPT/HCPCS: 45380; J2704

== ENCOUNTER → 2025-03-16 14:40 | Outpatient (CLI) | payer OTHER, SELFPAY ==
[2025-03-16 15:16] LABS: Add Manual Diff / Slide Review NO; Hematocrit 40.3 % (36-46); Hemoglobin 13.8 g/dL (12.0-16.0); Lymphocytes Absolute Auto 2000 /uL (1100-4500); Mean Corpuscular HGB Conc 34.2 % (30-36); Mean Corpuscular Hemoglobin 32.5 PG (26-34); Mean Corpuscular Volume 95.0 fL (80-100); Platelet Count 255 X10^3/uL (150-400)
[2025-03-16 15:34] LABS: Alanine Aminotransferase 19 IU/L (<35); Albumin 4.6 g/dL (3.5-5.0); Albumin Globulin Ratio 1.6 (1.0-2.8); Alkaline Phosphatase 84 U/L (38-126); Blood Urea Nitrogen 10 mg/dL (7-17); Calcium 9.9 mg/dL (8.4-10.2); Carbon Dioxide 29 mmol/L (22-32); Chloride 100 mmol/L (98-107); Cholesterol 203 mg/dL (140-199); Estimated Glomerular Filt Rate > 60 mL/min (>60); Globulin 2.9 g/dL (1.7-4.1); Glucose 107 mg/dL (70-99); HDL Cholesterol 103 mg/dL (40-60); HEMOLYSIS < 15 (0-50); Potassium 4.0 mmol/L (3.4-5.1); Sodium 135 mmol/L (137-145); Total Protein 7.5 g/dL (6.3-8.2); Triglycerides 72 mg/dL (35-150)
[2025-03-17 04:40] LABS: CRP, High Sensitivity 0.59 mg/L (0.00-3.00)
== END ==
PROVIDERS: PCP Family Medicine; Referring Provider Family Medicine; Visit Provider Family Medicine
DX: E78.5 Hyperlipidemia, unspecified (principal); M81.0 Age-related osteoporosis without current pathological fracture
CPT/HCPCS: 80053; 80061; 85025; 86140